=== PATIENT | male | born 1995 | race Caucasian/White ===

== ENCOUNTER 2017-09-24 16:27 | Emergency (ER) | payer BC ==
[2017-09-24] MEDS ORDERED: Fluorescein Opthalmic Strip ONE (16:37)
[2017-09-24] MEDS ORDERED: Proparacaine 0.5% Opth 15 ML BOT ONE (16:37)
== END 2017-09-24 17:01 | disposition home or self-care (01) ==
LOC: SCSER 16:27
DX: T15.02XA Foreign body in cornea, left eye, initial encounter (principal); F17.210 Nicotine dependence, cigarettes, uncomplicated; F17.220 Nicotine dependence, chewing tobacco, uncomplicated; Y99.0 Civilian activity done for income or pay
CPT/HCPCS: 65220; 99283

== ENCOUNTER 2020-03-27 14:27 | Outpatient (CLI) | payer BC ==
--- NOTE | 2020-03-27 15:14 | RAD ---
XR Sinuses [facility] View Only HISTORY: MRI clearance COMPARISON: None. FINDINGS: No radiopaque foreign bodies identified
--- NOTE | 2020-03-27 16:53 | MRI ---
MRI OF RIGHT KNEE PERFORMED WITHOUT CONTRAST ENHANCEMENT: History: Twisting injury. History of previous ACL repair. FINDINGS: There is a complete re-tear of the graft. Associated bone contusions involving the posterolateral tib ial and lateral femoral condyle. The posterior cruciate ligament is intact. There is a radially oriented tear involving the junction of the anterior horn and body of the lateral meniscus. The medial side shows an undersurface flap type tear involving the posterior horn extendin g into the body region. In addition, the posterior horn near the meniscal root is mildly blunted. Thi s may be more of a chronic injury. Medial as well as lateral collateral ligaments and iliotibial band regions are unremarkable. The patellar articular cartilage is difficult to assess due to motion. No obvious abnormality. Medial and lateral collateral ligaments and medial and lateral patellar retinaculum and quadriceps and jefferson llar tendons are unremarkable. IMPRESSION: 1. Complete tear of the ACL graft. Associated bone contusions along the posterolateral tibial and lat eral femoral condyle. 2. Radially oriented tear at the junction of the anterior horn and body of the lateral meniscus which appears to be acute in nature. 3. Undersurface flap type tear involving the posterior horn and the medial meniscus extending into th e body of the meniscus which is moderately truncated. POS: DINAH
== END 2020-03-27 14:28 | disposition home or self-care (01) ==
LOC: BICMRI 14:27
PROVIDERS: ATTEND Orthopaedic Surgery
DX: S83.511A Sprain of anterior cruciate ligament of right knee, initial encounter (principal); S83.281A Other tear of lateral meniscus, current injury, right knee, initial encounter; S83.241A Other tear of medial meniscus, current injury, right knee, initial encounter
CPT/HCPCS: 70210

== ENCOUNTER 2020-05-01 07:45 | Outpatient (CLI) | payer BC, OTHER ==
[2020-05-01 18:01] LABS: SARS-CoV-2 MS2 Positive; SARS-CoV-2 N Gene Negative; SARS-CoV-2 S Gene Negative; SARS-CoV-2 by NAA Not Detected (NotDetected); SARS-CoV-2 orf1ab Negative
== END 2020-05-01 07:46 | disposition home or self-care (01) ==
LOC: LABBT 07:45
PROVIDERS: ATTEND Orthopaedic Surgery
DX: S83.241A Other tear of medial meniscus, current injury, right knee, initial encounter (principal); S83.242A Other tear of medial meniscus, current injury, left knee, initial encounter; Z20.828 Contact with and (suspected) exposure to other viral communicable diseases
CPT/HCPCS: 87635; U0003

== ENCOUNTER 2020-05-05 06:05 | Observation (INO) | payer BC ==
[2020-05-01 14:01] VITALS: BMI 25.7
[2020-05-05] MEDS ORDERED: Fentanyl 100 MCG/2 ML VIAL ONE ×4 (07:17→12:47)
[2020-05-05] MEDS ORDERED: Midazolam HCl 2 mg/2 ml Vial ONE (07:17)
[2020-05-05] MEDS ORDERED: Zolpidem Tartrate 5 MG TAB PO PRN (08:22)
[2020-05-05] MEDS ORDERED: traMADol HCl 50 MG TAB PO PRN ×2 (08:22)
[2020-05-05] MEDS ORDERED: Ropivacaine 0.2% 550 ML 550 ML NERVE BLCK SCH (08:22)
[2020-05-05] MEDS ORDERED: Ondansetron PF 4 MG/2 ML Vial IVP PRN (08:22)
[2020-05-05] MEDS ORDERED: HYDROcodone/Acetaminophen 5/325 mg Tablet PO PRN ×2 (08:22)
[2020-05-05] MEDS ORDERED: Fentanyl 100 MCG/2 ML VIAL IV PRN (08:22)
[2020-05-05] MEDS ORDERED: Promethazine HCl 25 MG/ML VIAL IM PRN (08:22)
[2020-05-05] MEDS ORDERED: Vancomycin 1.5 GRAM/300 ML BAG ONE (08:44)
[2020-05-05] MEDS ORDERED: Ondansetron PF 4 MG/2 ML Vial ONE (09:49)
[2020-05-05] MEDS ORDERED: Dexamethasone 20 MG/5 ML VIAL ONE (09:49)
[2020-05-05] MEDS ORDERED: Bupivacaine HCl 0.5%/Epinephrine 1:200,000/PF 30 ml Vial ONE (09:49)
[2020-05-05] MEDS ORDERED: PROPOFOL 200 MG/20 ML VIAL ONE (09:49)
[2020-05-05] MEDS ORDERED: Lidocaine 1% PF 5 ML VIAL ONE (09:49)
[2020-05-05] MEDS ORDERED: HYDROcodone/Acetaminophen 7.5/325 mg Tablet PO PRN ×2 (11:43)
[2020-05-05] MEDS ORDERED: Milk Of Magnesia 30 ML UDCUP PO PRN (11:43)
[2020-05-05] MEDS ORDERED: Methocarbamol 500 MG TAB PO PRN (11:43)
[2020-05-05] MEDS ORDERED: Morphine 2 MG/ML VIAL SLOW IVP PRN (11:43)
[2020-05-05] MEDS ORDERED: diphenhydrAMINE 50 MG CAP PO PRN (11:43)
[2020-05-05] MEDS ORDERED: Bisacodyl 10 MG SUPP PR PRN (11:43)
[2020-05-05] MEDS ORDERED: Acetaminophen 500 MG TAB PO PRN (11:43)
[2020-05-05] MEDS ORDERED: Morphine 4 MG/ML VIAL SLOW IVP PRN (11:43)
[2020-05-05] MEDS ORDERED: Meperidine HCl/PF 25 MG/ML VIAL ONE (11:46)
[2020-05-05] MEDS ORDERED: Ketorolac Tromethamine 30 MG/ML VIAL ONE (12:47)
[2020-05-05] MEDS: Dextrose 5 %-0.45 % NaCl 1,000 ML IV SCH ×2 (14:17→22:53)
[2020-05-05] MEDS: Ketorolac Tromethamine 30 MG/ML VIAL IVP SCH ×2 (14:17→17:01)
[2020-05-05] MEDS: CEFAZOLIN 2 GM in Premix Bag 1 BAG IVPB SCH (17:01)
[2020-05-05] MEDS: Famotidine 20 MG TAB PO SCH (20:12)
[2020-05-06] MEDS: Ketorolac Tromethamine 30 MG/ML VIAL IVP SCH ×2 (00:12→06:10)
[2020-05-06] MEDS: CEFAZOLIN 2 GM in Premix Bag 1 BAG IVPB SCH (00:12)
[2020-05-06 07:56] VITALS: BP 121/70; TEMP 98.1
[2020-05-06] MEDS: Dextrose 5 %-0.45 % NaCl 1,000 ML IV SCH (09:37)
[2020-05-06] MEDS: Famotidine 20 MG TAB PO SCH (09:41)
--- NOTE | 2020-05-07 18:32 | OP ---
DATE OF PROCEDURE: 05/05/2020 PREOPERATIVE DIAGNOSIS: Failed right knee revision ACL reconstruction. POSTOPERATIVE DIAGNOSIS: Failed right knee revision ACL reconstruction. PROCEDURES PERFORMED: 1. Right knee exam under anesthesia. 2. Right knee arthroscopy with arthroscopically-assisted revision ACL reconstruction performed using the allograft Achilles tendon. 3. Placement of extra-articular augmentation for stability/ anterolateral ligament reconstruction. 4. Hardware removal, right knee. PRINTING SALES REPRESENTATIVE: Ramakrishna Laird PA-C. ESTIMATED BLOOD LOSS: Minimal. COMPLICATIONS: None. ANESTHESIA: He had general anesthetic. He had a preoperative block. TOURNIQUET TIME: 123 minutes. DISPOSITION: He did go to recovery room in stable condition. IMPLANTS: The ACL reconstruction was a 7 x 25 metal interference screw. We used a 9 x 30 BioComposite interference screw into the tibial tunnel and we used a bicortical screw with a soft tissue washer for backup fixation for the ACL ligament. We used a 7 x 19 Biocomposite interference screw and a 4.75 BioComposite SwiveLock for the ALL reconstruction INDICATIONS: A 24-year-old male who has had two previous ACL reconstructions including an autologous patellar tendon graft followed by a revision using the allograft Achilles tendon. At this time, he is presenting for repeat of his ACL surgery iand n lieu of the fact that he had two previous failures with no other complicating factor, it was felt that he needed an extra-articular augmentation to provide increased stability to protect the graft. DESCRIPTION OF PROCEDURE: After all appropriate consent forms were explained and signed, Nancy was taken to the operative room and at this time was given general anesthetic. Once the level of anesthesia was appropriate, positive Maria Victoria's and pivot shift were noted on his exam under anesthesia. A tourniquet was then placed on his right thigh. Leg was placed in an arthroscopic leg bassett. The limb was then prepped and draped in standard surgical fashion. Limb was exsanguinated. Tourniquet was taken up to 300 mmHg. At this time, we did our lateral posterior tibial reconstruction first. We found our landmarks, which on the tibia was approximately 12 mm distal to the joint line and midway between the fibular head and Gerdy's tubercle and on the femur we found the lateral epicondyle and just proximal and posterior to this. A lateral incision was made to incorporate these two areas down through skin. Bovie was used to coagulate any brisk venous bleeding. First, we went ahead and found our tibial tunnel again going proximally midway between the fibular head and Gerdy's tubercle or 22 mm lateral to the center of Gerdy's tubercle. We went 12 mm distal to the joint line and placed a guidewire parallel to the tibial plateau. We then over-reamed this with a 7 mm reamer. We then split our IT band and through their opening, we were able to palpate fibular collateral ligament following to its insertion on the femur. We then went 8 mm proximal and 5 mm posterior to this as our entry point for the femoral tunnel. A guidewire was placed. We then used a reamer for a 4.75 SwiveLock going to a depth of 20 mm. This was then tapped. Ligament was then placed into the femoral tunnel. This ligament was an allograft posterior tib tendon which had been cut down, so that there was approximately a size 5. Each of the two edges were sewn with a FiberLoop. The femoral side was then docked using the 4.75 BioComposite SwiveLock without any complication. We then tunneled down through the IT band to our tibial tunnel and passed a graft. It was not placed at this time as we replaced it after performing the ACL reconstruction. We then placed one stay stitch in our skin so that it would not flop open the entire time and keep the tissues moist, and once we did this, we then made our inferolateral portal, placed our scope into the knee joint. We then used a needle localization technique to make our medial working portal. Diagnostic arthroscopy commenced. Inside the notch, there really was no sign of any remnant ACL other than a small piece of tissue on the tibia. This was cleaned up with a shaver. At this time, a repeat notchplasty was performed using the shaver as well as the SERFAS energy probe and once we cleaned out the notch and any scar tissue , we were then able to visualize our interference screw in our femur. A guidewire was placed and we first tried to take the screw out, it was imbedded so hard that it actually broke off the tip of the screwdriver. This tip was then carefully removed from the joint, keeping it on the wire the entire time. We then used 0.25-inch osteotome to further remove any bone surrounding the interference screw. We then used a solid screwdriver to get this screw started. We then placed a wire and the new cannulated screwdriver to remove the interference screw without complication. At this time, we then turned our attention to scoping the rest of the knee. The medial compartment was found to have a small amount of chondral wear. Previous medial meniscectomy was noted. There were no other meniscus tears noted upon probing and direct visualization. Lateral compartment again showed a small radial free edge tear in the body. No other significant tearing was noted. There was some more significant chondral wear especially on the tibial plateau. Any loose chondral pieces were removed with the shaver and the free edge of the meniscus was debrided with the small shaver at this time. Gutters were swept through. No loose bodies were noted. Patellofemoral joint was in good condition except for one small area over the medial facet of the patella, which had some chondral pieces falling off and this was debrided with a shaver back to stable base. At this time, we went about removing the camera and drained the knee. We then used our previous incision and cut down to this with a 10 blade. We then used a Bovie to coagulate any brisk venous bleeding. We then pulled our skin flap medially to expose our previously placed screw and washer. This was removed without complication. At this time, we were about performing repeat drilling of the tunnels. We placed the scope back into the knee joint and through the medial portal, the knee was flexed and over-the- top guide was used to place a pin up and out the anterolateral thigh. A 10 mm reamer was then used to ream our tunnel. This was reamed to a depth of 30. All loose bony cartilaginous debris was then removed from the knee joint with the shaver. We then placed our tibial guide at 55 degrees and placed a pin up into the tibia. Again , a 10 mm reamer was then used to ream our tunnel. All loose bony and cartilaginous debris was then removed from the knee joint. At this time, we removed any soft tissue from around our tibial tunnel and we then went dry. Any sharp edges of our tunnel were taken down with a juan and a rasp. We then flexed the knee up and placed a pin up and out the anterolateral thigh using this port passing suture into the knee joint. This was pulled down the tibial tunnel and used for graft up into the knee. This was then fixated with a 7 x 25 metal interference screw. We then placed a 9 x 30 BioComposite interference screw up our tibial tunnel for primary fixation. This was backed up with bicortical screw and soft tissue washer. Remaining excess graft was removed at this time. Check stability and good Maria Victoria exam was noted. We then turned our attention laterally to our ALL fixation on the tibia. The retaining stitch was cut, given this access to our incision. We then cleaned out our tibial tunnel. We then pulled our graft taut with the knee in full extension and neutral rotation marking line at the entry portal into our tibial tunnel. 20 mm distal to this, we then used our suture loop to sew these 20 mm and the excess graft was cut off. We then placed this in typical fashion using a 7 x 19 mm BioComposite Bio-Tenodesis screw. This gave us excellent fixation. The knee went to full range of motion without any issues and no blocking of motion secondary to extra-articular augmentation. At this time, we thoroughly irrigated both our incisions. We then closed these sequentially using 0 Vicryl for the deep tissues, 2-0 Vicryl, Prolene stitches on the incision through the scar tissue and lisandro through the virgin incision laterally. At this time, the tourniquet had reached 2 hours and 3 minutes. Bulky sterile dressing was applied. Tourniquet was let down. Toes pinked up nicely. A bulky sterile dressing was then applied to the limb. At this time, the patient was awakened. He was to recovery room in stable condition. All counts were correct at the end of the case and he did receive preoperative IV antibiotics. Job ID: [id number] [facility]
== END 2020-05-06 10:55 | disposition home or self-care (01) ==
LOC: SDC 06:05 → SURG A 11:49
PROVIDERS: ADMIT Orthopaedic Surgery; ATTEND Orthopaedic Surgery
PROC: 0MRN4KZ Replacement of Right Knee Bursa and Ligament with Nonautologous Tissue Substitute, Percutaneous Endoscopic Approach (ICD-10-PCS; principal; 2020-05-05)
PROC: 3E0T3BZ Introduction of Anesthetic Agent into Peripheral Nerves and Plexi, Percutaneous Approach (ICD-10-PCS; 2020-05-05)
DX: S83.511A Sprain of anterior cruciate ligament of right knee, initial encounter (principal); S83.281A Other tear of lateral meniscus, current injury, right knee, initial encounter; S83.242A Other tear of medial meniscus, current injury, left knee, initial encounter; G89.18 Other acute postprocedural pain; F90.9 Attention-deficit hyperactivity disorder, unspecified type; F17.210 Nicotine dependence, cigarettes, uncomplicated; Y93.72 Activity, wrestling
CPT/HCPCS: 96361; 96365; 96366; 96375; 96376; A4306; C1713; C1776; G0378; J0670; J0690; J1100; J1885; J2175; J2250; J2405; J2704; J2795; J3010; J3370

== ENCOUNTER 2022-03-22 16:25 | Outpatient (CLI) | payer BC ==
[2022-03-22 18:27] LABS: #Eosinphils 0.1 10x3/uL (0.0-0.5); #Monocytes 0.5 10x3/uL (0.0-1.1); #Neutrophils 2.6 10x3/uL (1.5-8.4); %Basophils 0.4 % (0.0-2.0); %Eosinophils 1.4 % (0.0-6.0); %Lymphocytes 32.2 % (18.0-47.0); %Monocytes 11.2 % (0.0-10.0); %Neutrophils 54.4 % (40.0-75.0); Mean Corpuscular HGB CONC 34.7 g/dL (32.0-36.0); Mean Corpuscular Hemoglobin 31.5 pg (27.0-33.0); Mean Corpuscular Volume 90.8 fl (81.2-95.1); Mean Platelet Volume 11.1 fl (7.4-10.4); Platelet Count 266 10x3/uL (150-450); RBC Distribution Width 12.1 % (11.5-14.5); Red Blood Cell (RBC) Count 4.44 10x6/uL (4.32-5.72); White Blood Cell (WBC) Count 4.8 10x3/uL (3.5-10.5)
== END 2022-03-22 16:26 | disposition home or self-care (01) ==
LOC: LABBT 16:25
PROVIDERS: ATTEND Orthopaedic Surgery
DX: Z01.812 Encounter for preprocedural laboratory examination (principal); T84.84XA Pain due to internal orthopedic prosthetic devices, implants and grafts, initial encounter; Z20.822 Contact with and (suspected) exposure to COVID-19
CPT/HCPCS: 85025; 87811

== ENCOUNTER 2022-03-27 06:07 | Day surgery (SDC) | payer BC ==
[2022-03-25 13:43] VITALS: BMI 28.3
[2022-03-27] MEDS ORDERED: fentaNYL Citrate/PF 100 MCG/2 ML SYRINGE ONE (06:17)
[2022-03-27] MEDS ORDERED: Midazolam HCl 2 mg/2 ml Vial ONE ×2 (06:37→08:14)
[2022-03-27] MEDS ORDERED: Sodium Chloride 0.9% 100 ML ONE (07:19)
[2022-03-27] MEDS ORDERED: CEFAZOLIN 2 GM VIAL ONE (07:19)
[2022-03-27] MEDS ORDERED: PROPOFOL 200 MG/20 ML VIAL ONE (07:45)
[2022-03-27] MEDS ORDERED: Dexamethasone 20 MG/5 ML VIAL ONE (07:45)
[2022-03-27] MEDS ORDERED: Ondansetron PF 4 MG/2 ML Vial ONE (07:45)
[2022-03-27] MEDS ORDERED: Ketorolac Tromethamine 30 MG/ML VIAL ONE (07:45)
[2022-03-27] MEDS ORDERED: Bupivacaine PF 0.5% 30 ML VIAL ONE (08:03)
== END 2022-03-27 09:55 | disposition home or self-care (01) ==
LOC: SDC 06:07
PROVIDERS: ATTEND Orthopaedic Surgery
PROC: 0QPL04Z Removal of Internal Fixation Device from Right Tarsal, Open Approach (ICD-10-PCS; principal; 2022-03-27)
DX: T84.84XA Pain due to internal orthopedic prosthetic devices, implants and grafts, initial encounter (principal); F17.210 Nicotine dependence, cigarettes, uncomplicated; Z79.899 Other long term (current) drug therapy
CPT/HCPCS: J0690; J1100; J1885; J2250; J2405; J2704; J3490; S0020